=== PATIENT | female | born 2000 | race Caucasian/White ===

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

== ENCOUNTER 2019-11-11 15:48 | Emergency (ER) | payer BC ==
[~2019-11-11] VITALS: Ht 170 cm; Wt 84.8 kg
[~2019-11-11 15:48] MED LIST: AMOX250S5 PO; DEXAINTSOL PO; HYDR15SO8 PO; TETRACAINESUCKERS MT
--- NOTE | 2019-11-11 16:54 | ED Chest Pain ---
General Chief Complaint: Chest Pain Stated Complaint: CHEST PAIN,SOB Nursing Triage Note: CHEST PAIN ON AND OFF ANDSOA WITH EXERTION FOR 3 WEEKS. Nursing Sepsis Screen: No Definite Risk Source: patient Exam Limitations: no limitations History of Present Illness Date Seen by Provider: Nov 11, 2019 Time Seen by Provider: 16:30 Initial Comments This 19-year-old young lady presents to the emergency room with complaints of worsening central chest pain over the past 3 weeks. Pain is intermittent and worsens with exertion. She also has dyspnea on exertion. She denies any cough, fever, vomiting, syncope, or diaphoresis. She is sometimes lightheaded associated with the pain. Pain also sometimes radiates into the mid back. She recently spent the last semester in [place] and flu back in September. Pain started a few weeks after that. She denies any lower extremity symptoms. She denies and states LMP was about a month ago. She denies any tobacco use. She does drink moderately about once a week. She denies any drug use. An end systolic murmur is heard on exam. Allergies and Home Medications Allergies Coded Allergies: No Known Drug Allergies (Unverified , 09/26/17) Patient Home Medication List Home Medication List Reviewed: Yes Review of Systems Review of Systems Constitutional: no symptoms reported EENTM: No Symptoms Reported Respiratory: See HPI Cardiovascular: See HPI Gastrointestinal: No Symptoms Reported Genitourinary: No Symptoms Reported Musculoskeletal: no symptoms reported Skin: no symptoms reported Psychiatric/Neurological: No Symptoms Reported Endocrine: No Symptoms Reported Past Stwhvtb-Sqzdif-Fzlnlz Hx Past Med/Social Hx: Reviewed Nursing Past Med/Soc Hx Patient Social History Alcohol Use: Denies Use Recreational Drug Use: No Recent Foreign Travel: No Contact w/Someone Who Travel: No Recent Infectious Disease Expo: No Recent Hopitalizations: No Seasonal Allergies Seasonal Allergies: No Past Medical History Surgeries: Yes (ACL) Respiratory: No Cardiac: No Neurological: No : No Last Menstrual Period: Nov 05, 2019 Reproductive Disorders: No Sexually Transmitted Disease: No HIV/AIDS: No Gastrointestinal: No Musculoskeletal: No Endocrine: No Cancer: No Psychosocial: No Integumentary: No Blood Disorders: No Adverse Reaction/Blood Tranf: No (N/A) Physical Exam Vital Signs Vital Signs - First Documented 11/11/19 15:52 Temp 37.0 Pulse 86 Resp 16 B/P (MAP) 130/79 (96) Pulse Ox 99 O2 Delivery Room Air Capillary Refill : Less Than 3 Seconds Height, Weight, BMI Height: 5'8.00" Weight: 165lbs. 0.0oz. [id number]; 29.00 BMI Method: General Appearance: No Apparent Distress, WD/WN HEENT: PERRL/EOMI, Normal ENT Inspection Neck: Non Tender Respiratory: Chest Non Tender, Lungs Clear, Normal Breath Sounds, No Accessory Muscle Use, No Respiratory Distress, Other (No wheezing or expiratory delay on forced expiration) Cardiovascular: Regular Rate, Rhythm, No Edema, No Murmur Gastrointestinal: Normal Bowel Sounds, Non Tender, Soft Extremity: Normal Inspection, No Pedal Edema Neurologic/Psychiatric: Alert, Oriented x3, No Motor/Sensory Deficits, Normal Mood/Affect, general forecaster II-XII Norm as Tested Skin: Normal Color, Warm/Dry Progress/Results/Core Measures Results/Orders Lab Results Laboratory Tests Test 11/11/19 16:54 Range/Units White Blood Count 5.0 4.3-11.0 10^3/uL Red Blood Count 4.57 4.35-5.85 10^6/uL Hemoglobin 13.4 11.5-16.0 G/DL Hematocrit 39 35-52 % Mean Corpuscular Volume 86 80-99 FL Mean Corpuscular Hemoglobin 29 25-34 PG Mean Corpuscular Hemoglobin Concent 34 32-36 G/DL Red Cell Distribution Width 14.3 10.0-14.5 % Platelet Count 317 130-400 10^3/uL Mean Platelet Volume 9.4 7.4-10.4 FL Neutrophils (%) (Auto) 37 L 42-75 % Lymphocytes (%) (Auto) 48 H 12-44 % Monocytes (%) (Auto) 10 0-12 % Eosinophils (%) (Auto) 4 0-10 % Basophils (%) (Auto) 1 0-10 % Neutrophils # (Auto) 1.9 1.8-7.8 X 10^3 Lymphocytes # (Auto) 2.4 1.0-4.0 X 10^3 Monocytes # (Auto) 0.5 0.0-1.0 X 10^3 Eosinophils # (Auto) 0.2 0.0-0.3 10^3/uL Basophils # (Auto) 0.1 0.0-0.1 10^3/uL Prothrombin Time 13.3 12.2-14.7 SEC INR Comment 1.0 0.8-1.4 Activated Partial Thromboplast Time 28 24-35 SEC D-Dimer 0.35 0.00-0.49 UG/ML Sodium Level 139 135-145 MMOL/L Potassium Level 3.6 3.6-5.0 MMOL/L Chloride Level 107 98-107 MMOL/L Carbon Dioxide Level 25 21-32 MMOL/L Anion Gap 7 5-14 MMOL/L Blood Urea Nitrogen 9 7-18 MG/DL Creatinine 0.74 0.60-1.30 MG/DL Estimat Glomerular Filtration Rate > 60 BUN/Creatinine Ratio 12 Glucose Level 88 70-105 MG/DL Calcium Level 10.0 8.5-10.1 MG/DL Corrected Calcium 8.5-10.1 MG/DL Magnesium Level 1.9 1.6-2.4 MG/DL Total Bilirubin 0.4 0.1-1.0 MG/DL Aspartate Amino Transf (AST/SGOT) 22 5-34 U/L Alanine Aminotransferase (ALT/SGPT) 15 0-55 U/L Alkaline Phosphatase 102 40-136 U/L Myoglobin 18.8 10.0-92.0 NG/ML Troponin I < 0.028 <0.028 NG/ML B-Type Natriuretic Peptide < 10.0 <100.0 PG/ML Total Protein 7.7 6.4-8.2 GM/DL Albumin 4.8 H 3.2-4.5 GM/DL Serum Test, Qualitative NEGATIVE NEGATIVE My Orders Orders - DOMINIC SAMANIEGO MD Cbc With Automated Diff (11/11/19 16:47) Magnesium (11/11/19 16:47) Ekg Tracing (11/11/19 16:47) Comprehensive Metabolic Panel (11/11/19 16:47) Myoglobin Serum (11/11/19 16:47) Protime With Inr (11/11/19 16:47) Partial Thromboplastin Time (11/11/19 16:47) O2 (11/11/19 16:47) Monitor-Rhythm Ecg Trace Only (11/11/19 16:47) Lipid Panel (11/12/19 06:00) Ed Iv/Invasive Line Start (11/11/19 16:47) BNP (11/11/19 16:47) Fibrin Degradation Products (11/11/19 16:47) Troponin I (11/11/19 16:47) Hcg,Qualitative Serum (11/11/19 16:49) Chest Pa/Lat (2 View) (11/11/19 17:38) Vital Signs/I&O 11/11/19 11/11/19 15:52 16:35 Temp 37.0 Pulse 86 Resp 16 B/P (MAP) 130/79 (96) Pulse Ox 99 O2 Delivery Room Air Room Air Blood Pressure Mean: 96 Progress Progress Note #1: Time: 17:55 Progress Note Workup has been unremarkable. There was a lymphocytic shift to her WBC which may suggest recent viral illness. I discussed the case with Dr. Holland who recommends an echocardiogram on an outpatient basis. Chest x-ray is still pending read and will be reviewed by Dr. Bravo before discharge. Progress Note #2: Time: 18:08 Progress Note There is evidence of bronchitis or bronchiolitis on the chest x-ray. We will trial azithromycin, prednisone, and an inhaler to treat possible bronchitis/bron chiolitis. Patient was instructed to follow-up with her primary care provider if this does not completely resolve her symptoms within a week. I also still want her to see Dr. Holland tomorrow for evaluation of her murmur. Initial ECG Impression Date: Nov 11, 2019 Initial ECG Impression Time: 16:38 Initial ECG Rate: 85 Initial ECG Rhythm: Normal Sinus Initial ECG Intervals: Normal Initial ECG Impression: Normal Comment Normal sinus rhythm with no ST elevation or depression. No abnormal intervals or axis deviation. Diagnostic Imaging Diagonstic Imaging: Xray Plain Films/CT/US/NM/MRI: chest Comments Chest x-ray viewed by me and report reviewed. See report below: NAME: TEE MARY [facility] REC#: [id number] PT STATUS: REG ER : 2000 PHYSICIAN: DOMINIC SAMANIEGO MD ADMIT DATE: 11/11/19/ER Draft Date of Exam:11/11/19 CHEST PA/LAT (2 VIEW) EXAMINATION: Chest 2 views. HISTORY: Chest pain. Shortness of breath. COMPARISON: None available. FINDINGS: The lung volumes are normal. Prominent perihilar interstitial markings are seen bilaterally. No focal consolidation is seen. No large pleural effusion or pneumothorax is seen. The cardiomediastinal silhouette is normal in size and contour. No acute osseous abnormality is seen. IMPRESSION: 1. Prominent perihilar interstitial markings, which may represent bronchitis/bronchiolitis. Asthma and cystic fibrosis can also have this appearance. No focal consolidations. Recommend correlation with patient history. Dictated on workstation # [id number] Dict: 11/11/19 1754 Trans: 11/11/19 1756 [facility] [id number] Interpreted by: JAY SWENSON DO Departure Impression Primary Impression: Chest pain on exertion Additional Impression: Dyspnea on exertion Disposition: HOME, SELF-CARE Condition: Improved Departure-Patient Inst. Decision time for Depature: 17:56 Referrals: NO,LOCAL PHYSICIAN (PCP/Family) Primary Care Physician Patient Instructions: Acute Bronchitis Add. Discharge Instructions: Take the azithromycin and prednisone as prescribed. Use your inhaler as directed when you're feeling short of breath. If this does not resolve your symptoms completely, please see your primary care provider next week. Also, please call Dr. Holland's office tomorrow morning for an appointment. They would like to see you tomorrow to arrange an echocardiogram. Return to care in the meantime if symptoms are worsening despite the measures above. All discharge instructions reviewed with patient and/or family. Voiced understanding. Scripts Albuterol Sulfate (PROAIR HFA) 1 Puff Puff 2 PUFF IH Q4H PRN for SHORTNESS OF BREATH, #1 PUFF 1 PUFF = 90 MCG Prov: DOMINIC SAMANIEGO MD 11/11/19 Prednisone (Prednisone) 20 Mg Tab 40 MG PO DAILY, #8 TAB Prov: DOMINIC SAMANIEGO MD 11/11/19 Azithromycin (Azithromycin) 250 Mg Tablet 250 MG PO UD, #6 TAB TAKE 2 TABLETS ON DAY ONE THEN TAKE 1 TABLET DAILY FOR FOUR MORE DAYS Prov: DOMINIC SAMANIEGO MD 11/11/19 Copy Copies To 1: PARISH HOLLAND MD [facility] CCDS DOMINIC SAMANIEGO MD Nov 11, 2019 16:54
[2019-11-11 17:05] LABS: BASOPHILS # (AUTO) 0.1 10^3/uL (0.0-0.1); BASOPHILS % (AUTO) 1 % (0-10); EOSINOPHILS # (AUTO) 0.2 10^3/uL (0.0-0.3); EOSINOPHILS % (AUTO) 4 % (0-10); HEMATOCRIT 39 % (35-52); HEMOGLOBIN 13.4 G/DL (11.5-16.0); LYMPHOCYTES # (AUTO) 2.4 X 10^3 (1.0-4.0); LYMPHOCYTES % (AUTO) 48 % (12-44); MEAN CORPUSCULAR HEMOGLOBIN 29 PG (25-34); MEAN CORPUSCULAR HGB CONC 34 G/DL (32-36); MEAN CORPUSCULAR VOLUME 86 FL (80-99); MEAN PLATELET VOLUME 9.4 FL (7.4-10.4); MONOCYTES # (AUTO) 0.5 X 10^3 (0.0-1.0); MONOCYTES % (AUTO) 10 % (0-12); NEUTROPHILS # (AUTO) 1.9 X 10^3 (1.8-7.8); NEUTROPHILS % (AUTO) 37 % (42-75); PLATELET COUNT 317 10^3/uL (130-400); RED CELL DISTRIBUTION WIDTH 14.3 % (10.0-14.5)
[2019-11-11 17:16] LABS: PROTHROMBIN TIME PATIENT 13.3 SEC (12.2-14.7)
[2019-11-11 17:28] LABS: ALANINE AMINOTRANSFERASE 15 U/L (0-55); ALBUMIN 4.8 GM/DL (3.2-4.5); ALKALINE PHOSPHATASE 102 U/L (40-136); BILIRUBIN,TOTAL 0.4 MG/DL (0.1-1.0); BUN/CREATININE RATIO 12; CARBON DIOXIDE 25 MMOL/L (21-32); CHLORIDE 107 MMOL/L (98-107); CREATININE SERUM 0.74 MG/DL (0.60-1.30); GFR ESTIMATED > 60; GLUCOSE 88 MG/DL (70-105); MAGNESIUM 1.9 MG/DL (1.6-2.4); POTASSIUM 3.6 MMOL/L (3.6-5.0); SODIUM 139 MMOL/L (135-145); TOTAL PROTEIN 7.7 GM/DL (6.4-8.2)
--- NOTE | 2019-11-11 17:56 | Diagnostic Imaging Report ---
EXAMINATION: Chest 2 views. HISTORY: Chest pain. Shortness of breath. COMPARISON: None available. FINDINGS: The lung volumes are normal. Prominent perihilar interstitial markings are seen bilaterally. No focal consolidation is seen. No large pleural effusion or pneumothorax is seen. The cardiomediastinal silhouette is normal in size and contour. No acute osseous abnormality is seen. IMPRESSION: 1. Prominent perihilar interstitial markings, which may represent bronchitis/bronchiolitis. Asthma and cystic fibrosis can also have this appearance. No focal consolidations. Recommend correlation with patient history. Dictated by: Dictated on workstation # [id number]
[2019-11-11] MEDS ORDERED: PRD20T PO (18:07)
[2019-11-11] MEDS ORDERED: AZIT250T12 PO (18:07)
[2019-11-11] MEDS ORDERED: RT-ALBUINH IH (18:07)
[2019-11-11 18:19] VITALS: BP 130/79
== END 2019-11-11 18:22 | disposition home or self-care (01) ==
LOC: EDUNIT# 15:48 → ER 15:49
DX: R07.89 Other chest pain (principal); R06.09 Other forms of dyspnea
CPT/HCPCS: 36415; 71046; 80053; 83735; 83874; 83880; 84484; 84703; 85025; 85379; 85610; 85730; 93005; 93041

== ENCOUNTER 2021-08-28 13:22 | Emergency (ER) | payer BC ==
[~2021-08-28] VITALS: Ht 170.2 cm; Wt 84.0 kg
[~2021-08-28 13:22] MED LIST changes: +AZIT250T12 PO; +PRD20T PO; +RT-ALBUINH IH
[2021-08-28 14:00] VITALS: BP 136/84
[2021-08-28 14:15] LABS: BILIRUBIN,URINE NEGATIVE (NEGATIVE); CLARITY,URINE CLEAR; COLOR,URINE YELLOW; GLUCOSE, URINE (UA) NEGATIVE (NEGATIVE); KETONES,URINE NEGATIVE (NEGATIVE); LEUKOCYTE ESTERASE ,URINE NEGATIVE (NEGATIVE); NITRITE,URINE NEGATIVE (NEGATIVE); PROTEIN,URINE NEGATIVE (NEGATIVE)
[2021-08-28 14:23] LABS: BACTERIA,URINE NEGATIVE /HPF; WBC,URINE RARE /HPF
--- NOTE | 2021-08-28 15:33 | Diagnostic Imaging Report ---
INDICATION: Leaking amniotic fluid. FINDINGS: There is an intrauterine fetus with a heart rate of 153 BPM. Placenta is anterior. No retroplacental fluid collection is seen. Cervical length is 4.3 cm. There is some trace fluid in the endocervical canal but no definite funneling is identified. Amniotic fluid volume appears appropriate but amniotic fluid index was not provided. IMPRESSION: No complicating features are detected. Dictated by: Dictated on workstation # [id number]
--- NOTE | 2021-08-28 16:05 | ED GU-Female ---
General Chief Complaint: OB < 20 WEEKS Stated Complaint: FLUID LEAKING 17 WEEKS Nursing Triage Note: PT AMB TO FT 2 W REPORTS OF MILD ABD PAIN, LEAKING OF CLEAR FLUID AT APPROX 1100 TODAY, AND SCHILLING/LIGHTHEADEDNESS X1 WEEK. PT IS 17 WEEKS GESTATION. CALLED OB AND WAS ADVISED TO GO TO ED FOR FURTHER EVALUATION. A&OX4. Source: patient Exam Limitations: no limitations History of Present Illness Date Seen by Provider: Aug 28, 2021 Time Seen by Provider: 14:09 Initial Comments This 21-year-old young lady at approximately 7 weeks gestational age presents to the emergency department with complaints of a gush of vaginal fluid when she was leaving work today. She works at [employer]. She denies any vaginal bleeding, discharge, or notable pain/cramping. She was previously a patient of Dr. Titus. She is transitioning care to Dr. Martinez but has not yet been seen. She was instructed by the OB office to present to the emergency room. Allergies and Home Medications Allergies Coded Allergies: peanut (Verified Allergy, Severe, 08/28/21) tree nut (Verified Allergy, Severe, 08/28/21) Patient Home Medication List Home Medication List Reviewed: Yes Albuterol Sulfate (Proair Hfa) 1 Puff Puff, 2 PUFF IH Q4H PRN for SHORTNESS OF BREATH Prescribed by: DOMINIC TIPTON on 11/11/191806 Azithromycin (Azithromycin) 250 Mg Tablet, 250 MG PO UD Prescribed by: DOMINIC TIPTON on 11/11/191806 Prednisone (Prednisone) 20 Mg Tab, 40 MG PO DAILY Prescribed by: DOMINIC TIPTON on 11/11/191806 Review of Systems Review of Systems Constitutional: no symptoms reported EENTM: no symptoms reported Respiratory: no symptoms reported Cardiovascular: no symptoms reported Gastrointestinal: no symptoms reported Genitourinary: see HPI : Yes Expected Date of Delivery: February 05, 2022 Musculoskeletal: no symptoms reported Skin: no symptoms reported Psychiatric/Neurological: No Symptoms Reported Endocrine: No Symptoms Reported Hematologic/Lymphatic: No Symptoms Reported Past Czuyuim-Shtnxc-Qqzzde Hx Patient Social History Tobacco Use?: No Use of E-Cig and/or Vaping dev: No Substance use?: No Alcohol Use?: No Immunizations Up To Date Influenza Vaccine Up-to-Date: No; Not Current First/Initial COVID19 Vaccinat: JANUARY 2021 Second COVID19 Vaccination Alexis: JANUARY 2021 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: [employer] Seasonal Allergies Seasonal Allergies: No Past Medical History Surgery/Hospitalization HX: SX: T&A, ACL RECONSTRUCTION LEFT KNEE Surgeries: Yes (ACL) Orthopedic Respiratory: No Cardiac: No Neurological: No Expected Date of Delivery: February 05, 2022 Reproductive Disorders: No Sexually Transmitted Disease: No HIV/AIDS: No Gastrointestinal: No Musculoskeletal: No Endocrine: No HEENT: No Cancer: No Psychosocial: No Integumentary: No Blood Disorders: No Adverse Reaction/Blood Tranf: No (N/A) Physical Exam Vital Signs Vital Signs - First Documented 08/28/21 14:00 Temp 36.9 Pulse 71 Resp 20 B/P (MAP) 136/84 (101) Pulse Ox 100 O2 Delivery Room Air Capillary Refill : Less Than 3 Seconds Height, Weight, BMI Height: 5'8.00" Weight: 165lbs. 0.0oz. 74.518621mq; 28.00 BMI Method: General Appearance: WD/WN, no apparent distress HEENT: normal ENT inspection Neck: normal inspection Cardiovascular: regular rate, rhythm, no edema, no murmur Respiratory: lungs clear, normal breath sounds, no respiratory distress Gastrointestinal: normal bowel sounds, non tender, soft, other (Appropriately gravid for gestational age) Extremities: normal inspection Neurologic/Psychiatric: alert, normal mood/affect, oriented x 3 Skin: normal color, warm/dry Progress/Results/Core Measures Suspected Sepsis SIRS Temperature: Pulse: 71 Respiratory Rate: 20 Blood Pressure 136 /84 Mean: 101 Results/Orders Lab Results Laboratory Tests Test 08/28/21 14:00 Range/Units Urine Color YELLOW Urine Clarity CLEAR Urine pH 7.0 5-9 Urine Specific Happy 1.015 L 1.016-1.022 Urine Protein NEGATIVE NEGATIVE Urine Glucose (UA) NEGATIVE NEGATIVE Urine Ketones NEGATIVE NEGATIVE Urine Nitrite NEGATIVE NEGATIVE Urine Bilirubin NEGATIVE NEGATIVE Urine Urobilinogen 0.2 < = 1.0 MG/DL Urine Leukocyte Esterase NEGATIVE NEGATIVE Urine RBC (Auto) NEGATIVE NEGATIVE Urine RBC NONE /HPF Urine WBC RARE /HPF Urine Squamous Epithelial Cells 2-5 /HPF Urine Crystals NONE /LPF Urine Bacteria NEGATIVE /HPF Urine Casts NONE /LPF Urine Mucus NEGATIVE /LPF Urine Culture Indicated NO My Orders Orders - DOMINIC SAMANIEGO MD Ua Culture If Indicated (08/28/21 14:09) [place] Limited [id number] (08/28/21 14:14) Vital Signs/I&O Capillary Refill : Less Than 3 Seconds Blood Pressure Mean: 101 Progress Note : Progress Note Urinalysis and ultrasound were unremarkable. Cervical length is greater than 4 mm. There is plenty of amniotic fluid. Patient does not appear to be having contractions or bleeding. Case was discussed with Dr. Martinez. Patient is being prescribed vaginal rest and close follow-up in the clinic. See discharge instructions. Diagnostic Imaging Diagonstic Imaging: Ultrasound Plain Films/CT/US/NM/MRI: pelvis Comments Ultrasound discussed with the animal health technician and report reviewed. See report below: NAME: TEE MARY [facility] REC#: [id number] PT STATUS: DEP ER : 2000 PHYSICIAN: DOMINIC SAMANIEGO MD ADMIT DATE: 08/28/21/ER Signed Date of Exam:08/28/21 [place] LIMITED [id number] INDICATION: Leaking amniotic fluid. FINDINGS: There is an intrauterine fetus with a heart rate of 153 BPM. Placenta is anterior. No retroplacental fluid collection is seen. Cervical length is 4.3 cm. There is some trace fluid in the endocervical canal but no definite funneling is identified. Amniotic fluid volume appears appropriate but amniotic fluid index was not provided. IMPRESSION: No complicating features are detected. Dictated by: Dictated on workstation # [id number] Dict: 08/28/21 1528 Trans: 08/28/211756 AS6 [id number] Interpreted by: TRINIDAD SHAIKH MD Electronically signed by: TRINIDAD SHAIKH MD 08/28/211756 Departure Impression Primary Impression: Vaginal discharge in Qualified Codes: O26.892 - Other specified related conditions, second trimester; N89.8 - Other specified noninflammatory disorders of vagina Disposition: 01 HOME, SELF-CARE Condition: Stable Departure-Patient Inst. Decision time for Depature: 16:04 Referrals: NO,LOCAL PHYSICIAN (PCP/Family) Primary Care Physician Patient Instructions: Premature Rupture of Membranes Add. Discharge Instructions: There is no evidence of active amniotic fluid leaking on your evaluation today. Contacted Dr. Martinez for follow-up instructions. Observe vaginal rest (nothing in the vagina) until you are cleared by Dr. Martinez. You may otherwise resume normal daily activity, but avoid strenuous activity such as running, heavy lifting, etc. Call Dr. Martinez or return to the ER if you have new or worsening symptoms including vaginal bleeding, odorous or colored vaginal discharge, abdominal pain or contractions, fever or chills, more loss of large amounts of vaginal fluid, etc. Call with questions or concerns. All discharge instructions reviewed with patient and/or family. Voiced understanding. Copy Copies To 1: ROMEL MARTINEZ MD, JOSHUA T MD Aug 28, 2021 16:05
== END 2021-08-28 16:19 | disposition home or self-care (01) ==
LOC: EDUNIT# 13:22 → ER 13:26
DX: O23.592 Infection of other part of genital tract in pregnancy, second trimester (principal); Z3A.17 17 weeks gestation of pregnancy; Z79.52 Long term (current) use of systemic steroids
CPT/HCPCS: 76815; 81000

== ENCOUNTER 2021-11-24 09:48 | Outpatient (CLI) | payer BC ==
[~2021-11-24] VITALS: Ht 170.2 cm; Wt 95.9 kg
[2021-11-24 09:54] VITALS: BP 126/79
[2021-11-24 10:33] LABS: BILIRUBIN,URINE NEGATIVE (NEGATIVE); CLARITY,URINE CLEAR; COLOR,URINE YELLOW; GLUCOSE, URINE (UA) NEGATIVE (NEGATIVE); KETONES,URINE NEGATIVE (NEGATIVE); LEUKOCYTE ESTERASE ,URINE 1+ (NEGATIVE); NITRITE,URINE NEGATIVE (NEGATIVE); PROTEIN,URINE NEGATIVE (NEGATIVE)
[2021-11-24 10:44] LABS: BACTERIA,URINE FEW /HPF
[2021-11-24] MEDS ORDERED: FLU QUADRIvalent (3YOA+) 60 mcg/0.5 ml 2021-22(AFLURIA) IM ONE (10:45)
[2021-11-24] MEDS ORDERED: NITR-65 PO (11:27)
[2021-11-24] MEDS ORDERED: PREN1TAB79 PO (11:27)
== END 2021-11-24 11:40 | disposition home or self-care (01) ==
LOC: LDRP 09:48 → WSo 09:48
PROVIDERS: ATTEND Obstetrics & Gynecology
DX: O36.8130 Decreased fetal movements, third trimester, not applicable or unspecified (principal); O26.893 Other specified pregnancy related conditions, third trimester; R10.2 Pelvic and perineal pain; Z3A.29 29 weeks gestation of pregnancy
CPT/HCPCS: 81000; 87088; 87210; G0008; G0463; 90471; 99213

== ENCOUNTER → 2021-12-24 | Outpatient (CLI) | payer BC ==
[~2021-12-24] MED LIST changes: +NITR-65 PO; +PREN1TAB79 PO
[2021-12-24 16:54] LABS: URINE CREATININE FOR RATIO 45 MG/DL (30-125); URINE PROTEIN FOR RATIO ONLY < 6 MG/DL (6-12)
== END ==
LOC: LABNPT 16:23
PROVIDERS: ATTEND Obstetrics & Gynecology
DX: O13.9 Gestational [pregnancy-induced] hypertension without significant proteinuria, unspecified trimester (principal)
CPT/HCPCS: 82570; 84156

== ENCOUNTER 2022-01-23 07:08 | Inpatient (IN) | payer BC ==
[~2022-01-23] VITALS: Ht 170.2 cm; Wt 102.5 kg
[2022-01-23] VITALS (29 sets, daily range): BP systolic 97–155; BP diastolic 55–89
[2022-01-23] MEDS ORDERED: D5 LR IV SOLUTION 1,000 ML IV SCH ×2 (07:30→14:45)
[2022-01-23 08:08] LABS: BASOPHILS % (AUTO) 0 % (0-10); EOSINOPHILS # (AUTO) 0.1 10^3/uL (0.0-0.3); EOSINOPHILS % (AUTO) 1 % (0-10); HEMATOCRIT 37 % (35-52); HEMOGLOBIN 12.8 g/dL (11.5-16.0); LYMPHOCYTES # (AUTO) 1.2 10^3/uL (1.0-4.0); LYMPHOCYTES % (AUTO) 16 % (12-44); MEAN CORPUSCULAR HEMOGLOBIN 31 pg (25-34); MEAN CORPUSCULAR HGB CONC 35 g/dL (32-36); MEAN CORPUSCULAR VOLUME 90 fL (80-99); MEAN PLATELET VOLUME 10.4 fL (9.0-12.2); MONOCYTES # (AUTO) 0.5 10^3/uL (0.0-1.0); MONOCYTES % (AUTO) 7 % (0-12); NEUTROPHILS # (AUTO) 5.6 10^3/uL (1.8-7.8); NEUTROPHILS % (AUTO) 75 % (42-75); PLATELET COUNT 236 10^3/uL (130-400); WHITE BLOOD COUNT 7.5 10^3/uL (4.3-11.0)
[2022-01-23] MEDS ORDERED: OXYTOCIN PRE-MIX DRIP 500 ML IV ONE ×2 (08:17→14:35)
--- NOTE | 2022-01-23 08:52 | History & Physical ---
History and Physical Date Seen by Provider: Jan 23, 2022 Time Seen by Provider: 08:50 This patient is a 21-year-old 1 female admitted for induction of labor due to mild preeclampsia her blood pressure in clinic yesterday was 138/99 and urine showed 1+ protein. Patient was at bedrest through the night at home with instructions to present at 7 AM for induction. She denies rupture membranes or bleeding. She denies contractions. She has had no other problems with this and her GBS culture was negative. Allergies are to peanuts and tree nuts Medications are vitamins Medical social and surgical history is all per the antepartum record HEENT exam is normal Neck is supple no lymphadenopathy no thyromegaly Abdomen is gravid soft nontender nondistended Extremities show no clubbing or cyanosis. There is no Homans' sign. Pelvic exam shows a cervix 2 cm dilated 50% effaced -2 station vertex presentation. Amniotomy was attempted Assessment and plan 38-week with mild preeclampsia admitted for induction of labor. Close attention to blood pressures and status management could be altered depending on appearance of progression of her. We anticipate a vaginal delivery but patient is aware that there is potential for for maternal or indications 38-week with preeclampsia Allergies and Home Medications Allergies Coded Allergies: peanut (Verified Allergy, Severe, 08/28/21) tree nut (Verified Allergy, Severe, 08/28/21) Patient Home Medication List Home Medication List Reviewed: Yes Vit W-Ca,Fe,FA(<1 mg) ( Vitamins) 1 Each Tablet, 1 EACH PO DAILY, (Reported) Entered as Reported by: GUDELIA CARROLL on 11/24/211126 Last Action: Reviewed Discontinued Medications Nitrofurantoin Monohyd/M-Cryst (Macrobid 100 mg Capsule) 100 Mg Capsule, 1 TAB P O BID Discontinued Reason: No Longer Taking Prescribed by: GUDELIA CARROLL on 11/24/211126 Last Action: Discontinued ISA PEREZ MD Jan 23, 2022 8:52 am
[2022-01-23] MEDS ORDERED: OXYTOCIN PRE-MIX DRIP 500 ML IV SCH ×2 (09:00→14:45)
[2022-01-23] MEDS: D5 LR IV SOLUTION 1,000 ML IV SCH ×2 (11:06→19:53)
[2022-01-23] MEDS ORDERED: METOCLOPRAMIDE INJ 10 MG/2 ML (REGLAN) ONE (13:39)
[2022-01-23] MEDS ORDERED: CITRIC ACID/SOB CIT (BICITRA) 30 ML UDC ONE (13:39)
[2022-01-23] MEDS ORDERED: FAMOTIDINE 20MG/2ML IV (PEPCID) ONE (13:39)
[2022-01-23] MEDS ORDERED: ceFAZolin 2 GM IV Premixed 50 ML ONE (13:42)
[2022-01-23] MEDS ORDERED: metroNIDAZOLE 500MG/100ML IVPB 100 ML ONE (13:42)
[2022-01-23] MEDS ORDERED: fentaNYL INJ 100 MCG/2 ML AMP ONE (13:44)
[2022-01-23] MEDS ORDERED: OXYTOCIN PRE-MIX DRIP 1,000 ML IV ONE (13:44)
[2022-01-23] MEDS ORDERED: KETOROLAC 30 MG/ML VIAL ONE (13:48)
[2022-01-23] MEDS ORDERED: CATHETER FLUSH 10 ML SYR IV SCH (14:00)
[2022-01-23] MEDS ORDERED: FAMOTIDINE 20MG/2ML IV (PEPCID) IV ONE (14:15)
[2022-01-23] MEDS ORDERED: LACTATED RINGERS 1,000 ML IV PRN (14:15)
[2022-01-23] MEDS: KETOROLAC 30 MG/ML VIAL IVP SCH ×2 (14:15→21:03)
[2022-01-23] MEDS ORDERED: metroNIDAZOLE 500MG/100ML IVPB 100 ML IV ONE (14:15)
[2022-01-23] MEDS ORDERED: CATHETER FLUSH 10 ML SYR IV PRN (14:15)
[2022-01-23] MEDS ORDERED: METOCLOPRAMIDE INJ 10 MG/2 ML (REGLAN) IV ONE (14:15)
[2022-01-23] MEDS ORDERED: ceFAZolin 2 GM IV Premixed 50 ML IV ONE (14:15)
[2022-01-23] MEDS ORDERED: CITRIC ACID/SOB CIT (BICITRA) 30 ML UDC PO ONE (14:15)
[2022-01-23] MEDS ORDERED: BUPIVACAINE 0.5% 30 ML (SENSORCAINE) VIAL ONE (14:36)
[2022-01-23] MEDS ORDERED: DOCU-143 PO (14:41)
[2022-01-23] MEDS ORDERED: IBUP-1780 PO (14:41)
[2022-01-23] MEDS ORDERED: ACHYD1T PO (14:41)
--- NOTE | 2022-01-23 14:43 | Discharge Inst-Surgical ---
Discharge Inst-Surgical Depart Medication/Instructions New, Converted or Re-Newed RX: Transmitted to Pharmacy Consults/Follow Up Patient Instructions: As directed Orders & Referrals Follow Up Appt: RTC 1 week for incision check. Call to make follow up appt. for patient in 4 weeks. Wound Care: Remove kamran, apply benzoin and steri strips. Activity Per routine post instructions. Diet as tolerated Patient may shower or tub bathe as desired. Continue home meds Activity Activity as Tolerated: Yes Diet Discharge Diet: No Restrictions ISA PEREZ MD Jan 23, 2022 14:43
[2022-01-23] MEDS ORDERED: ONDANSETRON 4 MG/2 ML (SDV) Z0FRAN IVP PRN (14:45)
[2022-01-23] MEDS ORDERED: TETANUS,DIPTH,PERTUSS P/F (BOOSTRIX) 0.5 ML VIAL IM ONE (14:45)
[2022-01-23] MEDS ORDERED: fentaNYL INJ 100 MCG/2 ML AMP IVP PRN (14:45)
[2022-01-23] MEDS: oxyCODONE/APAP 10/325MG (PERCOCET 10) TABLET PO PRN (18:50)
--- NOTE | 2022-01-23 19:04 | OPERATIVE REPORT ---
DATE OF SERVICE: 01/23/2022 PREOPERATIVE DIAGNOSIS: A 38-week with preeclampsia and nonreassuring heart rate pattern. POSTOPERATIVE DIAGNOSES: A 38-week with preeclampsia and nonreassuring heart rate pattern with partial placental abruption. OPERATIVE PROCEDURE: Primary low transverse delivery of a viable male with Apgars of 8 and 9 at 1 and 5 minutes respectively, weight of 7 pounds even, cord blood gas of 7.18 and a time of 1412. OPERATIVE DESCRIPTION: With the patient in the supine position under satisfactory spinal analgesia, she was repositioned in supine and then prepped and draped in the usual fashion for abdominal surgery. Bui catheter was placed in the urinary bladder. A Pfannenstiel incision was made through skin with scalpel, the patient's abdomen entered in the usual manner. Bladder retractor placed into position and clean scalpel used to make a 4 cm hysterotomy incision transversely across the lower uterine segment that was extended by blunt dissection as well. A vigorous viable male infant was delivered via the uterine incision. Ordaz forceps were applied to facilitate the delivery. The infant was bulb suctioned on delivery of the head and again on completion of delivery. Umbilical cord was doubly clamped and cut and infant passed to the pediatric nurse in attendance for the delivery. Cord bloods were obtained. The placenta delivered spontaneously partially Garcia and partially Gross. It appeared that part probably approaching 50% of the placenta had abrupted. There was dark blood and clot associated with that portion of the placenta. The placenta was sent to pathology for permanent section. The uterus was exteriorized and interior wiped clean with a wet laparotomy sponge. Uterine incision closed with running locked suture of 2-0 Vicryl. Hemostasis was satisfactory. The uterus was returned to abdominal cavity. All blood clot and debris was removed from the abdominal cavity. Sponge and needle counts correct, hemostasis assured. Anterior parietal peritoneum was closed with running suture of 2-0 Vicryl. Rectus muscles were closed with that suture as well. The rectus fascia was closed with 2-0 Vicryl and the skin was stapled. Sponge and needle counts were correct on completion of the procedure. Blood loss was around 400 mL. The patient tolerated the procedure well and remained in the operating room. When I left, she will be transferred to the recovery room shortly. The baby remained with the mom. Job ID: [id number] DocumentID: [id number] Dictated Date: 01/23/2022 14:32:10 Route [employer] Delivery Drivers Supervisor Date: 01/23/2022 19:04:03 Dictated By: ISA PEREZ MD
[2022-01-23] MEDS ORDERED: DOCUSATE SODIUM 100 MG (COLACE) CAP PO SCH (21:00)
[2022-01-23] MEDS: DOCUSATE SODIUM 100 MG (COLACE) CAP PO SCH (21:02)
[2022-01-24] VITALS: BP 116/73
[2022-01-24] MEDS: oxyCODONE/APAP 10/325MG (PERCOCET 10) TABLET PO PRN ×4 (00:16→18:39)
[2022-01-24] MEDS: KETOROLAC 30 MG/ML VIAL IVP SCH (03:32)
[2022-01-24 04:26] VITALS: BP 138/88
[2022-01-24 08:42] VITALS: BP 124/80
[2022-01-24] MEDS ORDERED: IBUPROFEN 800 MG (MOTRIN) TAB PO SCH (09:00)
[2022-01-24] MEDS ORDERED: IBUPROFEN 800 MG (MOTRIN) TAB PO ONE (09:46)
[2022-01-24] MEDS: DOCUSATE SODIUM 100 MG (COLACE) CAP PO SCH ×2 (09:47→22:21)
--- NOTE | 2022-01-24 09:58 | Anesthesia-Regional Post-Op ---
Regional Patient Condition Mental Status: Alert, Oriented x3 Circulation: Same as Pre-Op Headache: Absent Sensation: Full Recovery Motor Block: Absent Post Op Complications Complications None Follow Up Care/Instructions Patient Instructions None needed. Anesthesia/Patient Condition Patient is doing well, no complaints, stable vital signs, no apparent adverse anesthesia problems. No complications reported per nursing. CANDIDA SUERO CRNA Jan 24, 2022 09:58
--- NOTE | 2022-01-24 11:51 | Progress Note ---
Standard Progress Note Progress Notes/Assess & Plan Date Seen by a Provider: Jan 24, 2022 Time Seen by a Provider: 11:50 Progress/Assessment & Plan This patient is without complaint. She is ambulating, voiding, tolerating oral intake well and has good pain control. Vital Signs Date Time Temp Pulse Resp B/P (MAP) Pulse Ox O2 Delivery O2 Flow Rate FiO2 01/24/22 08:42 37.4 102 16 124/80 (95) 99 Room Air 01/24/22 04:26 36.4 95 18 138/88 (105) 100 Room Air 01/24/22 00:00 36.7 82 18 116/73 (87) 98 Room Air 01/23/22 20:49 37.5 103 18 130/82 (98) 98 Room Air 01/23/22 19:07 98 Room Air 01/23/22 17:17 37.5 73 20 119/69 (86) 99 Room Air 01/23/22 15:34 36.2 16 121/67 (85) 98 Room Air 01/23/22 15:34 Room Air 01/23/22 15:22 Room Air 01/23/22 15:20 36.5 16 131/86 (101) 98 Room Air 01/23/22 15:08 Room Air 01/23/22 15:06 36.7 16 135/89 (104) 98 Room Air 01/23/22 14:54 Room Air 01/23/22 14:52 36.2 16 113/80 (91) 97 Room Air 01/23/22 14:38 Room Air 01/23/22 14:38 36.0 16 136/73 (94) 98 Room Air 01/23/22 13:40 81 18 145/72 (96) 100 Non Rebreather 15.00 01/23/22 13:25 69 18 117/61 (79) Room Air 01/23/22 13:11 79 18 111/63 (79) Room Air 01/23/22 12:56 70 18 111/67 (82) Room Air 01/23/22 12:43 67 18 112/55 (74) Room Air 01/23/22 12:27 74 18 116/76 (89) Room Air 01/23/22 12:10 80 18 109/67 (81) Room Air 01/23/22 11:57 77 18 97/59 (72) Room Air I & O 01/24/22 07:00 Intake Total 2850 ml Output Total 1700 ml Balance 1150 ml Vital signs are stable. Patient is afebrile. Blood pressures seem to be normalizing. The abdomen is benign Extremities show no clubbing cyanosis. There is no Homans' sign. Assessment and plan Postoperative day 1 status post primary delivery doing well. Plan is for routine convalescent care ISA PREEZ MD Jan 24, 2022 11:51 am
[2022-01-24 12:26] VITALS: BP 123/81
[2022-01-24] MEDS: IBUPROFEN 800 MG (MOTRIN) TAB PO SCH ×2 (16:15→22:22)
[2022-01-24 16:20] VITALS: BP 124/72
[2022-01-24 22:22] VITALS: BP 120/68
[2022-01-25] MEDS: oxyCODONE/APAP 10/325MG (PERCOCET 10) TABLET PO PRN ×2 (02:23→12:12)
[2022-01-25 02:28] VITALS: BP 137/84
[2022-01-25] MEDS: IBUPROFEN 800 MG (MOTRIN) TAB PO SCH ×2 (04:19→10:07)
[2022-01-25 04:21] VITALS: BP 137/84
[2022-01-25 08:22] VITALS: BP 125/86
[2022-01-25] MEDS: DOCUSATE SODIUM 100 MG (COLACE) CAP PO SCH (08:24)
--- NOTE | 2022-01-25 12:01 | Progress Note ---
Standard Progress Note Progress Notes/Assess & Plan Date Seen by a Provider: Jan 25, 2022 Time Seen by a Provider: 11:59 Progress/Assessment & Plan This patient is without complaint. She is ambulating, voiding, tolerating oral intake well and has good pain control. Vital Signs Date Time Temp Pulse Resp B/P (MAP) Pulse Ox O2 Delivery O2 Flow Rate FiO2 01/24/22 08:42 37.4 102 16 124/80 (95) 99 Room Air 01/24/22 04:26 36.4 95 18 138/88 (105) 100 Room Air 01/24/22 00:00 36.7 82 18 116/73 (87) 98 Room Air 01/23/22 20:49 37.5 103 18 130/82 (98) 98 Room Air 01/23/22 19:07 98 Room Air 01/23/22 17:17 37.5 73 20 119/69 (86) 99 Room Air 01/23/22 15:34 36.2 16 121/67 (85) 98 Room Air 01/23/22 15:34 Room Air 01/23/22 15:22 Room Air 01/23/22 15:20 36.5 16 131/86 (101) 98 Room Air 01/23/22 15:08 Room Air 01/23/22 15:06 36.7 16 135/89 (104) 98 Room Air 01/23/22 14:54 Room Air 01/23/22 14:52 36.2 16 113/80 (91) 97 Room Air 01/23/22 14:38 Room Air 01/23/22 14:38 36.0 16 136/73 (94) 98 Room Air 01/23/22 13:40 81 18 145/72 (96) 100 Non Rebreather 15.00 01/23/22 13:25 69 18 117/61 (79) Room Air 01/23/22 13:11 79 18 111/63 (79) Room Air 01/23/22 12:56 70 18 111/67 (82) Room Air 01/23/22 12:43 67 18 112/55 (74) Room Air 01/23/22 12:27 74 18 116/76 (89) Room Air 01/23/22 12:10 80 18 109/67 (81) Room Air 01/23/22 11:57 77 18 97/59 (72) Room Air I & O 01/24/22 07:00 Intake Total 2850 ml Output Total 1700 ml Balance 1150 ml Vital signs are stable. Patient is afebrile. Blood pressures seem to be normalizing. The abdomen is benign Extremities show no clubbing cyanosis. There is no Homans' sign. Assessment and plan Postoperative day 1 status post primary delivery doing well. Plan is for routine convalescent care January 25, 2022 Patient is without complaint. She is ambulating, voiding, tolerating oral intake well and has good pain control. Patient is requesting discharge home Vital Signs Date Time Temp Pulse Resp B/P (MAP) Pulse Ox O2 Delivery O2 Flow Rate FiO2 01/25/22 08:22 36.7 89 18 125/86 (99) 100 Room Air 01/25/22 04:21 36.1 89 18 137/84 (101) 100 Room Air 01/24/22 22:22 36.2 88 18 120/68 (85) 99 Room Air 01/24/22 16:20 36.0 89 16 124/72 (89) 98 Room Air 01/24/22 12:26 36.5 76 18 123/81 (95) 99 Room Air l I & O 01/25/22 07:00 Intake Total 1500 ml Output Total 1000 ml Balance 500 ml Vital signs are stable. Patient is afebrile. Abdomen is benign Extremities show no clubbing or cyanosis. There is no Homans' sign. Assessment and plan Postoperative day #2 status post primary delivery doing well plan is for discharge home with follow-up in Final Diagnosis 38-week primary delivery ISA PEREZ MD Jan 25, 2022 12:01 pm
[2022-01-25 12:50] VITALS: BP 125/86
[2022-01-28] MEDS ORDERED: IBUPROFEN 800 MG (MOTRIN) TAB PO SCH (18:00)
== END 2022-01-25 12:50 | disposition home or self-care (01) | DRG 788 ==
LOC: LDRP 07:08
PROVIDERS: ADMIT Obstetrics & Gynecology; ATTEND Obstetrics & Gynecology
PROC: 10D00Z1 Extraction of Products of Conception, Low, Open Approach (ICD-10-PCS; principal; 2022-01-23 13:49)
DX: O14.94 Unspecified pre-eclampsia, complicating childbirth (principal); Z3A.38 38 weeks gestation of pregnancy; Z37.0 Single live birth; O76 Abnormality in fetal heart rate and rhythm complicating labor and delivery; O45.93 Premature separation of placenta, unspecified, third trimester
CPT/HCPCS: 36415; 85025; 86780; 86850; 86900; 86901; 94664

== ENCOUNTER → 2022-01-30 | Outpatient (CLI) | payer BC ==
[~2022-01-30] MED LIST changes: +ACHYD1T PO; +DOCU-143 PO; +IBUP-1780 PO
== END ==
LOC: LABNPT 13:28
PROVIDERS: ATTEND Obstetrics & Gynecology
DX: R30.9 Painful micturition, unspecified (principal)
CPT/HCPCS: 87088